=== PATIENT | female | born 1950 | race Caucasian/White ===

== ENCOUNTER 2021-09-30 02:46 | Emergency (ER) | payer BC, OTHER ==
[~2021-09-30] VITALS: Ht 162.6 cm; Wt 73.0 kg
[2021-09-30] MEDS ORDERED: ONDANSETRON HCL 4MG/2ML INJ IV STA (03:12)
[2021-09-30] MEDS ORDERED: MORPHINE SULFATE 4 MG/ML CPJ (NOT FOR IM USE) IV STA (03:12)
[2021-09-30 04:50] LABS: BASOPHILS % 0.6 % (0.0-2.0); EOSINOPHILS % 2.2 % (0.0-5.0); HEMATOCRIT. 44.9 % (36.0-48.0); HEMOGLOBIN. 15.4 g/dL (12.0-16.0); LYMPHOCYTES % 19.2 % (20.0-50.0); MEAN CORPUSCULAR VOLUME 93.6 fL (81.0-99.0); MONOCYTES % 7.6 % (2.0-8.0); NEUTROPHILS % 70.4 % (40.0-76.0); PLATELET 247 x1000/uL (130-400); RED BLOOD CELL COUNT 4.79 mill/uL (4.2-5.4); RED CELL DISTRIBUTION WIDTH 13.5 % (11.6-14.6)
[2021-09-30 04:57] LABS: CHLORIDE 112 mEq/L (98-107)
[2021-09-30 05:21] LABS: CLARITY URINE CLEAR (CLEAR); COLOR URINE YELLOW (YELLOW); KETONES URINE NEGATIVE (NEGATIVE); LEUKOCYTE ESTERASE URINE 1+ (NEGATIVE); NITRITE URINE NEGATIVE (NEGATIVE); OCCULT BLOOD URINE NEGATIVE (NEGATIVE); PH URINE 7.5 (4.5-8.0); PROTEIN URINE NEGATIVE (NEGATIVE); SPECIFIC GRAVITY URINE 1.006 (1.005-1.030); UROBILINOGEN URINE 0.2 E.U./dL (0.2-1.0)
[2021-09-30] MEDS ORDERED: HYDR-4001 MT (05:52)
[2021-09-30] MEDS ORDERED: IBUP-2028 MT (05:52)
[2021-09-30 07:15] VITALS: BP 150/72
== END 2021-09-30 07:27 | disposition home or self-care (01) ==
LOC: ER 03:22
DX: M54.50 Low back pain, unspecified (principal); I10 Essential (primary) hypertension; E78.00 Pure hypercholesterolemia, unspecified; Z98.890 Other specified postprocedural states
CPT/HCPCS: 36415; 74176; 80053; 81003; 85025; 96374; 96375; 99284; J2270; J2405